=== PATIENT | male | born 1990 ===

== ENCOUNTER → 2020-10-22 08:23 | Outpatient (CLI) | payer OTHER, SELFPAY ==
[2020-10-22 10:15] LABS: COVID19 -Nasal RAPID Negative (Negative)
== END ==
PROVIDERS: Visit Provider Family Medicine Sleep Medicine
DX: Z20.822 Contact with and (suspected) exposure to COVID-19 (principal); G47.33 Obstructive sleep apnea (adult) (pediatric)
CPT/HCPCS: 87635; 95810